=== PATIENT | male | born 1975 | race Caucasian/White ===

== ENCOUNTER 2019-01-11 01:49 | Emergency (ER) | payer OTHER ==
[~2019-01-11] VITALS: Ht 185.4 cm; Wt 95.3 kg
[2019-01-11 01:54] VITALS: Ht 185.4 cm; Wt 95.3 kg
[2019-01-11 02:30] VITALS: BP 147/87
== END 2019-01-11 02:30 | disposition other institution (70) ==
LOC: ED 01:49
DX: Z02.89 Encounter for other administrative examinations (principal)